=== PATIENT | male | born 1990 | race Caucasian/White ===

== ENCOUNTER 2016-09-14 23:34 | Emergency (ER) | payer BC ==
[~2016-09-14] VITALS: Ht 180.3 cm; Wt 75.0 kg
[2016-09-14 23:43] VITALS: Ht 180.3 cm; Wt 75.0 kg
[2016-09-15] MEDS: ONDANSETRON (ODT) 4 MG TAB ODT STA ×2 (00:48→01:04)
[2016-09-15] MEDS ORDERED: morphine 4 MG/ML VIAL ONE (00:49)
[2016-09-15] MEDS ORDERED: morphine 10 MG INJ IM ONE ×2 (01:00)
[2016-09-15] MEDS ORDERED: HYDROCODONE/APAP (10/325) TAB PO ONE (01:00)
[2016-09-15] MEDS ORDERED: LORAZEPAM 2 MG INJ IM ONE (02:30)
[2016-09-15] MEDS ORDERED: PHENYLephrine 1% 15 ML NAS SPRAY NASAL ONE (02:30)
--- NOTE | 2016-09-15 05:30 | ERD ---
ER Documentation Chief Complaint Date/Time DATE: 09/15/16 TIME: 05:28 Chief Complaint epistaxis x 30 minutes. s/p surgery deviated septum x 1 week ago HPI This is a 26-year-old male comes in with epistaxis for 30 minutes. Patient status post surgery for deviated septum [address] pinto. No trauma. No fevers no chills. ROS All systems reviewed and are negative except as per history of present illness. Allergies Allergies: Coded Allergies: No Known Drug Allergies (Verified Allergy, Unknown, 09/14/16) PMhx/Soc Medical and Surgical Hx: pt denies Medical Hx History of Surgery: Yes (Repair of the nasal septum) Anesthesia Reaction: No Hx Neurological Disorder: No Hx Respiratory Disorders: No Hx Cardiac Disorders: No Hx Psychiatric Problems: No Hx Miscellaneous Medical Probl: No Hx Alcohol Use: No Hx Substance Use: No Hx Tobacco Use: Yes Smoking Status: Current every day smoker Physical Exam Vitals Vital Signs Date Time Temp Pulse Resp B/P Pulse Ox O2 Delivery O2 Flow Rate FiO2 09/15/16 04:03 98.0 87 20 108/75 100 Room Air 09/14/16 23:43 98.2 84 20 130/92 100 Physical Exam Const: [] Head: Atraumatic Eyes: Normal Conjunctiva ENT: Normal External Ears, Nose and Mouth. Neck: Full range of motion..~ No meningismus. Resp: Clear to auscultation bilaterally Cardio: Regular rate and rhythm, no murmurs Abd: Soft, non tender, non distended. Normal bowel sounds Skin: No petechiae or rashes Back: No midline or flank tenderness Ext: No cyanosis, or edema Neur: Awake and alert Psych: Normal Mood and Affect Results 24 hrs Current Medications Medications (Trade) Dose Ordered Sig/Dariela Route PRN Reason Start Time Stop Time Status Last Admin Dose Admin Acetaminophen/ Hydrocodone Bitart ([place] (10/325)) 1 tab ONCE ONCE PO 09/15/16 01:00 09/15/16 01:00 DC Morphine Sulfate (morphine) 4 mg ONCE ONCE IM 09/15/16 01:00 09/15/16 01:01 DC 09/15/16 01:02 Ondansetron HCl (Zofran Odt) 4 mg ONCE STAT ODT 09/15/16 00:48 09/15/16 00:49 DC Morphine Sulfate (morphine) 4 mg STK-MED ONCE .ROUTE 09/15/16 00:49 09/15/16 00:50 DC Morphine Sulfate (morphine) 4 mg ONCE ONCE IM 09/15/16 01:00 09/15/16 01:01 DC Lorazepam (Ativan) 1 mg ONCE ONCE IM 09/15/16 02:30 09/15/16 02:31 DC 09/15/16 02:27 Phenylephrine HCl (Willian-Synephrine 1% [place]) 1 spray ONCE ONCE NASAL 09/15/16 02:30 09/15/16 02:31 DC Procedures/MDM Medical decision-making: Patient with epistaxis. Has been treated with phenylephrine spray along with anterior nasal packing. I spoke to Dr. Polanco who is on-call for ENT and he recommended this course of therapy. Bleeding has stopped. Follow-up with primary surgeon today. Return for bleeding. Departure Diagnosis: Primary Impression: Epistaxis Condition: Stable JED SPENCE Sep 15, 2016 05:29
[2016-09-15 05:35] VITALS: BP 116/80; PULSE 85; RESP 18; TEMP 98.6
== END 2016-09-15 05:35 | disposition home or self-care (01) ==
LOC: E/R 23:34
DX: R04.0 Epistaxis (principal); F17.210 Nicotine dependence, cigarettes, uncomplicated
CPT/HCPCS: 96372; 99284; J2060; J2270